=== PATIENT | female | born 1960 | race Caucasian/White ===

== ENCOUNTER 2018-01-18 09:38 | Outpatient (CLI) | payer OTHER | END 2018-01-18 09:39 | disposition home or self-care (01) | LOC: BICMAMMO 09:38 | PROVIDERS: ATTEND Internal Medicine | DX: Z12.31 Encounter for screening mammogram for malignant neoplasm of breast (principal); Z80.3 Family history of malignant neoplasm of breast | CPT/HCPCS: 77063; 77067 ==

== ENCOUNTER 2018-08-02 13:02 | Outpatient (CLI) | payer OTHER ==
--- NOTE | 2018-08-02 14:25 | MMO ---
Left Breast MAMMO Unilat Diag DDI LT+DARIEL. CLINICAL HISTORY: Patient is 57 years old and is seen for diagnostic exam and palpable abnormality in the left breast. The patient has no personal history of cancer. VIEWS: The views performed were: left craniocaudal with tomosynthesis; left mediolateral oblique with tomosynthesis; and left mediolateral. FILMS COMPARED: The present examination has been compared to prior imaging studies performed at [facility] on 12/31/2016, 01/18/2018 and 08/02/2018. MAMMOGRAM FINDINGS: The breast is heterogeneously dense, which could obscure a lesion on mammography. There is a 1.4 cm mass with pleomorphic calcifications. IMPRESSION: FINDING IN THE LEFT BREAST IS HIGHLY SUGGESTIVE OF MALIGNANCY. AN ULTRASOUND-GUIDED BREAST BIOPSY IS RECOMMENDED. THE RESULTS OF THIS EXAM WERE SENT TO THE PATIENT. ACR BI-RADS Category 5 - Highly suggestive of malignancy - appropriate action should be taken MAMMOGRAPHY NOTE: 1. A negative mammogram report should not delay a biopsy if a dominant of clinically suspicious mass is present. 2. Approximately 10% to 15% of breast cancers are not detected by mammography. 3. Adenosis and dense breasts may obscure an underlying neoplasm.
--- NOTE | 2018-08-02 15:10 | MMO ---
Left Breast MAMMO Unilat Diag DDI LT. CLINICAL HISTORY: Patient is 57 years old and is seen for diagnostic exam. The patient has no personal history of cancer. VIEWS: The views performed were: left craniocaudal and left mediolateral oblique. FILMS COMPARED: The present examination has been compared to prior imaging studies performed at [facility] on 12/31/2016, 01/18/2018 and 08/02/2018. MAMMOGRAM FINDINGS: Appropriatel clip position. IMPRESSION: FINDING IN THE LEFT BREAST IS CONFIRMED UTILIZING POST PROCEDURE MAMMOGRAM. THE RESULTS OF THIS EXAM WERE SENT TO THE PATIENT. MAMMOGRAPHY NOTE: 1. A negative mammogram report should not delay a biopsy if a dominant of clinically suspicious mass is present. 2. Approximately 10% to 15% of breast cancers are not detected by mammography. 3. Adenosis and dense breasts may obscure an underlying neoplasm.
--- NOTE | 2018-08-02 16:35 | ULT ---
LEFT BREAST ULTRASOUND: 08/02/18 HISTORY: Palpable mass in the left breast. COMPARISON: None. FINDINGS: Targeted sonographic imaging of the left breast is performed. Static images were reviewed. After revi villegas static images, real time imaging was performed in the presence of the radiologist. FINDINGS: Static and real time imaging demonstrate an irregular marginated 2.0 x 1.6 x 1.8 cm mass with calcifi cations, corresponding to recent mammogram finding. IMPRESSION: BIRADS 5: Highly Suggestive of Malignancy - Appropriate Action Should Be Taken Requires biopsy or surgical treatment RECOMMENDATION: Ultrasound guided biopsy left breast is recommended. Results of the study discussed with Dr. Adamson upon completion of the examination. Code CR POS: [facility]
--- NOTE | 2018-08-02 17:54 | ULT ---
ULTRASOUND GUIDED BIOPSY OF THE LEFT BREAST: 08/02/18 HISTORY: Left breast mass. COMPARISON: None. FINDINGS: Successful ultrasound guided biopsy. A total of three 14 gauge core biopsy samples were obtained. Pos t biopsy clip was performed. Appropriate clip position. TECHNIQUE: Consent obtained to perform an ultrasound guided biopsy of a mass in the left breast. Left breast was prepped and draped in a sterile fashion. 1% lidocaine, buffered with sodium bicarbonate was used for local anesthesia. Under ultrasound guidance, three 14 gauge core biopsy samples were obtained. Samp les were placed directly in formalin. The patient tolerated the procedure well. No immediate or postp rocedure complication. Post biopsy mammogram was performed IMPRESSION: Successful ultrasound guided biopsy of left breast. Final pathologic diagnosis is pending. POS: [facility]
== END 2018-08-02 13:03 | disposition home or self-care (01) ==
LOC: BICMAMMO 13:02
PROVIDERS: ATTEND Obstetrics & Gynecology
DX: C50.912 Malignant neoplasm of unspecified site of left female breast (principal)
CPT/HCPCS: 19083; 88305; 88341; 88342; G0279

== ENCOUNTER 2018-08-12 12:44 | Outpatient (CLI) | payer OTHER ==
[2018-08-12 14:03] LABS: #Eosinphils 0.1 thou/uL (0.0-0.7); #Lymphocytes 1.6 thou/uL (1.20-3.40); #Monocytes 0.4 thou/uL (0.11-0.59); #Neutrophils 4.3 thou/uL (1.40-6.50); %Basophils 0.8 % (0.0-1.0); %Eosinophils 0.8 % (0.0-10.0); %Lymphocytes 24.3 % (21.0-51.0); %Neutrophils 67.1 % (42.0-75.0); Hemoglobin 13.4 g/dL (12.0-16.0); Mean Corpuscular HGB CONC 33.7 g/dL (32.0-36.0); Mean Corpuscular Hemoglobin 32.2 pg (27.0-31.0); Mean Corpuscular Volume 95.4 fL (78.0-98.0); Platelet Count 171 thou/uL (130-400); RBC Distribution Width 11.7 % (11.5-14.5); Red Blood Cell (RBC) Count 4.17 mill/uL (4.20-5.40); White Blood Cell (WBC) Count 6.4 thou/uL (4.8-10.8)
[2018-08-12 14:25] LABS: Anion Gap 12 mmol/L (10-20); BUN (Urea Nitrogen) 14 mg/dL (9.8-20.1); Calc. Creatinine Clearance 0 mL/min (70-130); Calcium 10.1 mg/dL (7.8-10.44); Carbon Dioxide 25 mmol/L (22-29); Chloride 106 mmol/L (98-107); Estimated GFR-MDRD 80; Glucose 98 mg/dL (70-105); Potassium 4.3 mmol/L (3.5-5.1); Sodium 139 mmol/L (136-145)
--- NOTE | 2018-08-13 09:21 | EKG ---
Test Reason : Blood Pressure : / mmHG Vent. Rate : 063 BPM Atrial Rate : 063 BPM P-R Int : 128 ms QRS Dur : 084 ms QT Int : 402 ms P-R-T Axes : 054 055 061 degrees QTc Int : 411 ms Normal sinus rhythm Normal ECG No previous ECGs available Confirmed by LAURA NGUYEN, DR. Hughes ([id number]) on 08/13/2018 9:21:22 AM Referred By: FLEX Confirmed By:DR. Saul SACNHEZ MD
== END 2018-08-12 12:45 | disposition home or self-care (01) ==
LOC: LABBT 12:44
PROVIDERS: ATTEND Specialist
DX: Z01.818 Encounter for other preprocedural examination (principal); C50.412 Malignant neoplasm of upper-outer quadrant of left female breast; Z17.1 Estrogen receptor negative status [ER-]
CPT/HCPCS: 80048; 85025; 93005; 93010

== ENCOUNTER 2018-08-15 12:27 | Outpatient (CLI) | payer OTHER ==
[~2018-08-15 12:27] MED LIST: Iopamidol 370 76% 100 ML VIAL ONE
--- NOTE | 2018-08-15 13:06 | CT ---
CT Chest Abd Pelvis W Con History: Breast cancer Comparison: None Findings: Lungs are clear. No pneumothorax. No effusion. No suspicious pulmonary nodule. Thyroid is unremarkable. No pericardial effusion. No mediastinal adenopathy. General glands are unremarkable. Abnormal high density mass left breast. No axillary adenopathy. No supraclavicular adenopathy. No int ernal mammary adenopathy. Prior cholecystectomy. 2 small to characterize hypodensities within hepatic segments 2 and 3 although statistically likely a cyst. Hypodensities in segment 5 likely a cyst. Spleen is unremarkable. Pancreas is unremarkable. Multiple bilateral renal parapelvic cysts. No dilated loops of large or small bowel. The aortoiliac contour is nonaneurysmal. Nonobstructive renal calculi left renal collecting system measuring up to 3-4 mm. There is mild diste ntion of the left gonadal veins. No suspicious osteolytic or osteoblastic lesion. Impression: No evidence of metastatic disease within the chest, abdomen, or pelvis.
== END 2018-08-15 12:28 | disposition home or self-care (01) ==
LOC: CT 12:27
PROVIDERS: ATTEND Internal Medicine Hematology & Oncology
DX: Z51.11 Encounter for antineoplastic chemotherapy (principal); C50.412 Malignant neoplasm of upper-outer quadrant of left female breast; Z79.899 Other long term (current) drug therapy; I08.1 Rheumatic disorders of both mitral and tricuspid valves
CPT/HCPCS: 71260; 74177; 93306

== ENCOUNTER 2018-08-16 07:37 | Day surgery (SDC) | payer OTHER ==
[2018-08-12 13:15] VITALS: BMI 24.2
[2018-08-16] MEDS ORDERED: Ketorolac Tromethamine 30 MG/ML VIAL ONE (08:16)
[2018-08-16] MEDS ORDERED: Midazolam HCl 2 mg/2 ml Vial ONE (09:10)
[2018-08-16] MEDS ORDERED: Bupivacaine/Epinephrine 0.25% 30 ML VIAL ONE (09:27)
[2018-08-16] MEDS ORDERED: Lidocaine 1% (PF) 30 ML VIAL ONE (09:27)
[2018-08-16] MEDS ORDERED: Fentanyl 100 MCG/2 ML VIAL ONE (10:06)
[2018-08-16] MEDS ORDERED: Propofol 500 MG/50 ML VIAL ONE (10:10)
--- NOTE | 2018-08-16 11:37 | RAD ---
XR Chest 1 View History: Postop MediPort placement Comparison: None. Findings: Scarring both apices. Port catheter tip mid SVC in good position. No pneumothorax. Impression: Uncomplicated placement port catheter.
--- NOTE | 2018-08-17 10:56 | OP ---
DATE OF PROCEDURE: 08/16/2018 PREOPERATIVE DIAGNOSIS: Left breast cancer. POSTOPERATIVE DIAGNOSIS: Left breast cancer. OPERATION PERFORMED: Placement of right subclavian low-profile MediPort. ANESTHESIA: Total intravenous anesthesia with local using 0.25% Marcaine with epinephrine. INDICATIONS: This patient is a 57-year-old white female. She has a newly diagnosed left breast cancer, which is HER-2/jose positive. Neoadjuvant chemotherapy has been recommended and MediPort is placed at this time for chemotherapy administration. DESCRIPTION OF OPERATION: Informed consent was obtained. The patient was taken to the operating room where total intravenous anesthesia was obtained with the patient in supine position. Right periclavicular area was prepped with ChloraPrep and draped in sterile fashion. Local anesthetic was infiltrated and a large-gauge needle was passed under the clavicle in the subclavian vein. Guidewire was passed through the needle and fluoroscopically confirmed to enter the superior vena cava. Additional local anesthetic was infiltrated and transverse incision was created based on needle insertion site. A subcutaneous pocket was dissected inferiorly. Introducer dilator was passed over the guidewire under fluoroscopic guidance. The guidewire and dilator were removed, and the catheter was passed through the introducer. The tip of the catheter was positioned at the atriocaval junction and the catheter was trimmed to the appropriate length and secured to the locking hub of the MediPort. The port was then placed in the subcutaneous pocket where it was secured to the pectoral fascia with 2 interrupted sutures of 3-0 Prolene. The incision was then closed in layers with 3-0 and 4-0 Monocryl. Additional local anesthetic was infiltrated. The port was cannulated with a Mclaughlin needle and it aspirated blood freely and was flushed with heparinized saline. Dermabond was placed externally on the skin incision. There were no complications. Blood loss was negligible. The patient tolerated the procedure well and was taken to recovery room in stable condition. FINDINGS: The port was placed into the right subclavian vein as she had a left-sided breast cancer. A low-profile power compatible port was selected. Although her anatomy internally and externally was typical, the catheter itself proceeded up into her internal jugular vein twice and this had to be addressed and altered during the surgery. The final placement was appropriate and typical. The port aspirated blood freely and was flushed with heparinized saline. There was essentially no blood loss. She tolerated the procedure well. Job ID: [id number]
== END 2018-08-16 12:20 | disposition home or self-care (01) ==
LOC: SDC 07:37
PROVIDERS: ATTEND Specialist
PROC: 02HV33Z Insertion of Infusion Device into Superior Vena Cava, Percutaneous Approach (ICD-10-PCS; principal; 2018-08-16)
DX: C50.412 Malignant neoplasm of upper-outer quadrant of left female breast (principal); E78.00 Pure hypercholesterolemia, unspecified; I10 Essential (primary) hypertension; Z17.1 Estrogen receptor negative status [ER-]; Z79.899 Other long term (current) drug therapy; Z88.5 Allergy status to narcotic agent
CPT/HCPCS: 71045; C1788; J0131; J0690; J1642; J1885; J2001; J2250; J2704; J3010

== ENCOUNTER 2018-09-07 14:59 | Outpatient (CLI) | payer OTHER ==
--- NOTE | 2018-09-07 16:51 | ULT ---
RIGHT UPPER EXTREMITY VENOUS DOPPLER WITH SPECTRAL ANALYSIS AND COLOR FLOW EVALUATION: 09/07/18 HISTORY: Right arm swelling/edema for three days. Patient has Mediport catheter in the right subclavian vein. Initial chemotherapy treatment one week ago. FINDINGS: Moon scale, color flow, Doppler evaluation, with spectral analysis of the right upper extremity venou s structures is performed with 2D imaging. There is normal flow seen within the right internal jugula r, subclavian, and axillary veins with normal lumen compressibility involving the right axillary vein . There is normal lumen compressibility and flow seen within the right brachial vein which appears to be a paired vein at the level of the antecubital fossa. There is normal lumen compressibility involv ing the right ulnar and radial veins. Normal lumen compressibility and flow is seen involving the right upper extremity cephalic and basili c veins. IMPRESSION: No evidence of a DVT involving the visualized deep venous structures of the right upper extremity. POS: [facility]
== END 2018-09-07 15:00 | disposition home or self-care (01) ==
LOC: ULT 14:59
PROVIDERS: ATTEND Nurse Practitioner Acute Care
DX: I82.90 Acute embolism and thrombosis of unspecified vein (principal); M79.89 Other specified soft tissue disorders; M79.601 Pain in right arm; C50.412 Malignant neoplasm of upper-outer quadrant of left female breast

== ENCOUNTER 2018-09-14 08:06 | Outpatient (CLI) | payer OTHER ==
--- NOTE | 2018-09-14 08:52 | RAD ---
FLUOROSCOPIC GUIDED PORT ACCESS: CLINICAL HISTORY: Edema/erythema related to indwelling right chest port. Evaluation for patency. FINDINGS: The patient was informed and consented of the procedure. The patient's port site was prepped and drap ed in a standard sterile fashion. Subsequently, the port was accessed, and with small volume of low pressure injection of Visipaque contrast, there is contrast opacifying the catheter as well as enteri ng into the right heart chambers, in an appropriate fluoroscopic appearance. Radiation exposure data: 0.2 minutes intermittent fluoroscopy; 13.2 microgray/cm2. IMPRESSION: Patent right chest port, as above. Transcribed Date/Time: 09/14/2018 9:32 AM
[2018-09-14] MEDS ORDERED: Iopamidol 300 61% 30 ML VIAL ONE (10:55)
--- NOTE | 2018-09-14 11:22 | ULT ---
RIGHT UPPER EXTREMITY DOPPLER VENOUS ULTRASOUND: Date: 09/14/18 INDICATION: Right upper extremity edema, erythema. FINDINGS: The imaged deep vein system of the right upper extremity is performed with Moon scale and Doppler col or flow imaging, as well as spectral analysis. The imaged deep vein structures of the right upper ext remity are patent without evidence of thrombus. IMPRESSION: No deep venous thrombosis of the imaged right upper extremity. POS: OFF
== END 2018-09-14 08:07 | disposition home or self-care (01) ==
LOC: RAD 08:06
PROVIDERS: ATTEND Internal Medicine Hematology & Oncology
DX: M79.601 Pain in right arm (principal); I82.90 Acute embolism and thrombosis of unspecified vein; R60.9 Edema, unspecified; Z98.890 Other specified postprocedural states
CPT/HCPCS: 36598; J1642; Q9967

== ENCOUNTER 2018-11-24 12:30 | Outpatient (CLI) | payer OTHER | END 2018-11-24 12:31 | disposition home or self-care (01) | LOC: ULT 12:30 | PROVIDERS: ATTEND Internal Medicine Hematology & Oncology | DX: Z51.11 Encounter for antineoplastic chemotherapy (principal); C50.412 Malignant neoplasm of upper-outer quadrant of left female breast; I08.1 Rheumatic disorders of both mitral and tricuspid valves; Z79.899 Other long term (current) drug therapy | CPT/HCPCS: 93306 ==

== ENCOUNTER 2019-06-02 13:32 | Outpatient (CLI) | payer OTHER | END 2019-06-02 13:33 | disposition home or self-care (01) | LOC: ULT 13:32 | PROVIDERS: ATTEND Internal Medicine Hematology & Oncology | DX: Z51.11 Encounter for antineoplastic chemotherapy (principal); C50.412 Malignant neoplasm of upper-outer quadrant of left female breast; Z79.899 Other long term (current) drug therapy; I08.1 Rheumatic disorders of both mitral and tricuspid valves | CPT/HCPCS: 93306 ==

== ENCOUNTER 2020-08-12 11:00 | Outpatient (CLI) | payer OTHER | END 2020-08-12 11:01 | disposition home or self-care (01) | LOC: BICRAD 11:00 | PROVIDERS: ATTEND Family Medicine | DX: M25.512 Pain in left shoulder (principal) ==

== ENCOUNTER 2022-05-19 09:14 | Outpatient (CLI) | payer OTHER | END 2022-05-19 09:15 | disposition home or self-care (01) | LOC: BICMAMMO 09:14 | PROVIDERS: ATTEND Family Medicine | DX: M81.0 Age-related osteoporosis without current pathological fracture (principal) | CPT/HCPCS: 77080 ==